=== PATIENT | male | born 1960 | race African-American/Black ===

== ENCOUNTER 2017-05-15 12:13 | Inpatient (IN) | payer OTHER ==
[~2017-05-15] VITALS: Ht 180.3 cm; Wt 79.4 kg
[2017-05-15] MEDS ORDERED: IV NS 1000 ML 1,000 ML IV ONE ×2 (13:00→14:30)
[2017-05-15 13:12] LABS: BASOPHILS % (AUTO) 0.6 % (0.0-2.0); EOSINOPHILS % (AUTO) 0.7 % (0.0-7.0); HEMATOCRIT 43.3 % (36.7-47.1); HEMOGLOBIN 14.5 g/dL (12.5-16.3); LYMPHOCYTES # (AUTO) 2.6 K/uL (20.0-40.0); LYMPHOCYTES % (AUTO) 39.2 % (20.5-51.5); MEAN CORPUSCULAR HEMOGLOBIN 28.5 uug (23.8-33.4); MEAN CORPUSCULAR HGB CONC 34 g/dL (32.5-36.3); MONOCYTES # (AUTO) 1.3 K/uL (2.0-10.0); MONOCYTES % (AUTO) 19.5 % (0.0-11.0); NEUTROPHILS # (AUTO) 2.7 K/uL (1.8-8.9); PLATELET COUNT (AUTO) 224 K/uL (152-348); RED BLOOD CELL COUNT(AUTO) 5.09 MIL/uL (4.06-5.63); WHITE BLOOD COUNT (AUTO) 6.7 K/uL (3.6-10.2)
[2017-05-15 13:19] LABS: *BILIRUBIN,URIN NEGATIVE (NEGATIVE); *BLOOD, URINE NEGATIVE (NEGATIVE); *CLARITY,URINE CLEAR (CLEAR); *COLOR,URINE LIGHT YELLOW (YELLOW); *KETONES,URINE NEGATIVE (NEGATIVE); *PROTEIN,URINE NEGATIVE (NEGATIVE); *UROBILINOGEN,URINE 0.2 E.U./dl (NORMAL); LEUKOCYTE ESTERASE ,URINE NEGATIVE (NEGATIVE); NITRITE, URINE NEGATIVE (NEGATIVE); UGLUCOSE NEGATIVE (NEGATIVE)
[2017-05-15 13:21] LABS: CREATININE 1.2 mg/dL (0.6-1.3)
[2017-05-15 13:22] LABS: POTASSIUM 2.8 mmol/L (3.5-5.1)
[2017-05-15] MEDS ORDERED: POTASSIUM CHLORIDE 20 MEQ TAB.PRT.SR PO ONE ×2 (13:23→16:15)
--- NOTE | 2017-05-15 13:25 | NUR ---
labs drawn/sent, saline lock placed, 1l 0.9ns bolus infusing, monitor shows nsr, po2=99% on room air, family at bedside, ekg/cxr done.
[2017-05-15 13:27] LABS: BILIRUBIN,TOTAL 0.4 mg/dL (0.2-1.0); TOTAL PROTEIN, SERUM 7.9 g/dL (6.4-8.2)
[2017-05-15 13:28] LABS: BACTERIA,URINE NONE SEEN /HPF (NONE SEEN); RBC,URINE 0-3 /HPF (0-3); SQUAMOUS EPITHELIAL CELL,UR FEW /HPF (NONE SEEN); WBC,URINE NONE SEEN /HPF (0-3)
[2017-05-15] MEDS ORDERED: POTASSIUM CHLORIDE 20 MEQ TAB.PRT.SR ONE ×2 (13:30→16:12)
--- NOTE | 2017-05-15 13:51 | NUR ---
audra completed, sbar report to concepcion jacome.
[2017-05-15 14:04] LABS: BAND % (MANUAL) 1 % (0-10); EOSINOPHILS % (MANUAL) 1 % (0-8); LYMPHOCYTES % (MANUAL) 44 % (20-40); MONOCYTES % (MANUAL) 18 % (2-10); NEUTROPHILS % (MANUAL) 36 % (42-75)
[2017-05-15] MEDS ORDERED: MECLIZINE HCL 25 MG TABLET PO ONE (14:30)
[2017-05-15] MEDS ORDERED: MECLIZINE HCL 25 MG TABLET ONE (14:37)
--- NOTE | 2017-05-15 14:51 | NUR ---
lunch given, 2nd litter0.9 ns infusing.
--- NOTE | 2017-05-15 15:19 | NUR ---
orthostatics completed, pt ambulated w/o diff, dr marie notified.
--- NOTE | 2017-05-15 16:41 | NUR ---
sbar report to concepcion rn, admit order written, belongings list done.
--- NOTE | 2017-05-15 16:50 | NUR ---
pt to rm [id number] via [facility].
[2017-05-15] MEDS ORDERED: ACETAMINOPHEN 325 MG TABLET PO PRN (18:30)
[2017-05-15] MEDS ORDERED: ONDANSETRON 4 MG/2 ML VIAL IV PRN (18:30)
[2017-05-15] MEDS ORDERED: POTASSIUM CHLORIDE 20 MEQ in IV 1/2NS 1000 ML 1,000 ML IV PRN (18:30)
[2017-05-15] MEDS ORDERED: HYDROCODONE/APAP 5-325MG TABLET PO PRN (18:30)
[2017-05-15] MEDS ORDERED: MAGNESIUM HYDROXIDE 30 ML LIQUID UDC PO PRN (18:30)
--- NOTE | 2017-05-15 19:45 | NUR ---
RECEIVED PATIENT IN BED ALERT ORIENTED, NO SOB NO CHEST PAIN, NO COMPLAIN OF PAIN, TAUGHT PATIENT THAT TO PRESS CALL LIGHT WHEN WANTED TO GO BATHROOM, ASSISTED WITH TOILETING, RYTHM SINUS RYTHM AT THIS TIME. CONT TO MONITOR.
[2017-05-15 20:41] VITALS: BP 99/64
[2017-05-16] VITALS: BP 93/54
[2017-05-16 04:00] VITALS: BP 92/65
[2017-05-16 06:32] LABS: BASOPHILS % (AUTO) 0.2 % (0.0-2.0); EOSINOPHILS # (AUTO) 0.1 K/uL (0.0-0.7); EOSINOPHILS % (AUTO) 1.5 % (0.0-7.0); HEMATOCRIT 38.5 % (36.7-47.1); HEMOGLOBIN 12.9 g/dL (12.5-16.3); LYMPHOCYTES # (AUTO) 2.5 K/uL (20.0-40.0); LYMPHOCYTES % (AUTO) 48.9 % (20.5-51.5); MEAN CORPUSCULAR HEMOGLOBIN 28.3 uug (23.8-33.4); MEAN CORPUSCULAR HGB CONC 33 g/dL (32.5-36.3); MEAN CORPUSCULAR VOLUME 84.7 fL (73.0-96.2); MONOCYTES # (AUTO) 0.8 K/uL (2.0-10.0); MONOCYTES % (AUTO) 14.9 % (0.0-11.0); NEUTROPHILS # (AUTO) 1.8 K/uL (1.8-8.9); NEUTROPHILS % (AUTO) 34.5 % (38.5-71.5); PLATELET COUNT (AUTO) 204 K/uL (152-348); RED BLOOD CELL COUNT(AUTO) 4.55 MIL/uL (4.06-5.63); WHITE BLOOD COUNT (AUTO) 5.2 K/uL (3.6-10.2)
[2017-05-16 06:49] LABS: THYROID STIMULATING HORMONE 2.08 mIU/mL (0.358-3.740)
[2017-05-16 06:51] LABS: BILIRUBIN,TOTAL 0.4 mg/dL (0.2-1.0); MAGNESIUM 2.2 mg/dL (1.8-2.4); PHOSPHOROUS 4.3 mg/dL (2.5-4.9); POTASSIUM 4.6 mmol/L (3.5-5.1); TOTAL PROTEIN, SERUM 6.3 g/dL (6.4-8.2)
--- NOTE | 2017-05-16 07:08 | NUR ---
PATIENT SLEPT MOST OF THE NIGHT NO SOB NO CHEST PAIN, COMPLAIN OF HEAD AND GENERALIZED PAIN MEDICATED FOR PAIN, RYTHM SINUS KYLER AT THIS TIME, ASSISTED WITH TOILETING, CALL LIGHT WITHIN REACH.
--- NOTE | 2017-05-16 07:26 | NUR ---
PATIENT RESTING COMFORTABLY IN BED AT THIS TIME. WILL MONITOR PATIENT'S IVF. PATIENT'S POTASSIUM LEVEL UP TO 4.6 AT THIS TIME. STABLE CONDITION, NO S/S OF DISTRESS. CALL LIGHT WITHIN REACH.
[2017-05-16] MEDS ORDERED: FAMOTIDINE 20 MG TABLET PO SCH (09:00)
[2017-05-16 11:52] VITALS: BP 96/63
--- NOTE | 2017-05-16 14:00 | NUR ---
PATIENT SEEN BY MD, PENDING DISCHARGE. STABLE CONDITION AT THIS TIME, NO S/S OF DISTRESS. IVF DISCONTINUED. POTASSIUM LEVELS WNL AT 4.6.
[2017-05-16 16:20] VITALS: BP 94/63
[2017-05-16] MEDS ORDERED: SIMV10TA6 PO (18:53)
--- NOTE | 2017-05-16 19:50 | NUR ---
PT DISCHARGED PER MD ORDER, PT IN STABLE CONDITION, PT GIVEN DISCHARGE INSTRUCTIONS, REVIEWED MEDICATION, PT VERBALIZED UNDERSTANDING, PT DID NOT HAVE ANY OTHER QUESTIONS, ALL NEEDS MET, PT IV REMOVED. PT LEFT HOSPITAL VIA PRIVATE CAR WITH .
[2017-05-16] MEDS ORDERED: SIMVASTATIN 10 MG TABLET PO SCH (21:00)
== END 2017-05-16 19:50 | disposition home or self-care (01) | DRG 641 ==
LOC: ER 12:13 → TELE 17:16 → MED 05-16 17:05
PROVIDERS: ADMIT Internal Medicine; ATTEND Internal Medicine
DX: E87.6 Hypokalemia (principal); E86.0 Dehydration; B34.9 Viral infection, unspecified; E78.5 Hyperlipidemia, unspecified; R42 Dizziness and giddiness
CPT/HCPCS: 36415; 70030-TC; 71045; 83735; 84100; 84443; 85025; 93005; A4663; J3480; J3490; J7030; J8597